=== PATIENT | male | born 1980 | race Caucasian/White ===

== ENCOUNTER 2016-10-03 01:51 | Inpatient (IN) | payer BC, OTHER ==
--- NOTE | 2016-10-03 02:18 | ED ---
Psych HPI - General Chief Complaint: Psychiatric Symptoms Stated Complaint: mental health Time Seen by Provider: 10/03/16 02:01 Source: police Mode of arrival: ambulatory - History of Present Illness Initial Comments: Is a 35-year-old male with a history of depression and suicidal attempts who presents to emergency department for attempted suicide. The patient states that he got into an argument with his about not being able to have sex with her. He states that she got very upset and wrapped a cord around her neck. He took the cord off of her neck and then wrapped around his neck. She was able to get the cord out from around his neck. He then took the founder chairman and chief creative officer was attempting to turn hairdryer on while he was in the bathtub. She stopped this from happening. The police were called and brought him into the emergency department. The patient states that he is very stressed out because he is not been able to have sex with his for a week and this is a major cause of stress in their relationship. He also states that he does not have custody of his daughter and is very upset about that. The patient states that he feels very hopeless. - Related Data Previous Rx's Medication Instructions Recorded Metaxalone [Skelaxin] 800 mg PO TID PRN #15 tab 01/02/14 traMADol HCl [Ultram] 50 mg PO Q6H PRN #20 tab 01/02/14 Allergies Allergy/AdvReac Type Severity Reaction Status Date / Time No Known Allergies Allergy Verified 10/03/16 01:56 Review of Systems ROS Statement: Those systems with pertinent positive or pertinent negative responses have been documented in the HPI. ROS Other: All systems not noted in ROS Statement are negative. Past Medical History Past Medical History: No Reported History History of Any Multi-Drug Resistant Organisms: None Reported Past Surgical History: No Surgical Hx Reported Past Psychological History: Depression Smoking Status: Current every day smoker Past Alcohol Use History: None Reported Past Drug Use History: Marijuana General Exam - General Exam Comments Initial Comments: Constitutional: Awake alert Appears comfortable Head: Normocephalic atraumatic Eyes: no conjunctival injection No scleral icterus EOMI Neck: No JVD Supple, no bruits or indication of strangulation Heart: Regular rate rhythm normal S1-S2 no murmurs Lungs: Clear to auscultation bilaterally No wheezing No rales Abdomen: Soft nondistended nontender Extremities: Non edematous DP pulses intact Radial pulses intact Neuro: A&Ox3 No focal neurologic deficits Psych: The patient appears very depressed with suicidal ideation Limitations: no limitations Course Vital Signs 10/03/16 10/03/16 01:54 04:30 Temperature 98.3 F 97.5 F L Pulse Rate 74 62 Respiratory 18 18 Rate Blood Pressure 138/89 132/78 O2 Sat by Pulse 99 98 Oximetry Medical Decision Making - Medical Decision Making This 35-year-old male came in for suicidal ideation. He was evaluated by mental health and they believe that he needs inpatient treatment. Patient is stable for transfer to the floor. Disposition Clinical Impression: Depression, Suicidal ideation Disposition: ADMITTED IP TO THIS HOSP Condition: Stable
[2016-10-03] MEDS ORDERED: MAG HYDROX/AL HYDROX/SIMETH 30 ML CUP PO PRN (14:34)
[2016-10-03] MEDS ORDERED: MAGNESIUM HYDROXIDE 2,400 MG/10 ML CUP PO PRN (14:34)
[2016-10-03] MEDS ORDERED: ACETAMINOPHEN TAB 325 MG TAB PO PRN (14:34)
--- NOTE | 2016-10-03 15:50 | P.HPMEDMHU ---
History of Present Illness H&P Date: 10/03/16 Chief Complaint: Depression. This is a 35 old male with no primary care physician who was brought into or facility at [facility] emergency department by police because the patient had a conflict at home with his apparently his tried to wrap court around her neck to kill herself so he took the court from her to wrap around his neck and went to the bathroom and started yelling and screaming the kids got scared and the cold 911 police came and took the patient to the ER for evaluation subsequently was admitted to the mental health unit for evaluation of his depression. Patient stated that he tried to give him some 5 years ago but he could not be successful. Review of Systems Constitutional: Denies chills, Denies chronic headaches, Denies lethargy, Denies weakness, Denies weight gain, Denies weight loss Eyes: denies blurred vision, denies bulging eye, denies decreased vision, denies diplopia Ears: deny: decreased hearing Ears, nose, mouth and throat: Denies dysphagia, Denies neck lump, Denies sore throat Cardiovascular: Denies chest pain, Denies claudication, Denies dyspnea on exertion, Denies high blood pressure, Denies phlebitis, Denies rapid heart beat , Denies shortness of breath, Denies syncope Respiratory: Denies congestion, Denies cough, Denies home oxygen, Denies sleep apnea, Denies snoring, Denies wheezing Gastrointestinal: Denies abdominal pain, Denies bloating, Denies BRBPR, Denies change in bowel habits, Denies heartburn, Denies melena, Denies nausea, Denies vomiting Genitourinary: Denies dysuria, Denies nocturia Musculoskeletal: Denies myalgias Musculoskeletal: absent: ankle pain, ankle stiffness, ankle swelling, elbow pain , elbow stiffness, elbow swelling, foot pain, foot stiffness, foot swelling, hand pain, hand stiffness, hand swelling, hip pain, hip stiffness, hip swelling , knee pain, knee stiffness, knee swelling, shoulder pain, shoulder stiffness, shoulder swelling, wrist pain, wrist stiffness, wrist swelling Integumentary: Denies pruritus, Denies rash Neurological: Denies numbness, Denies weakness Psychiatric: Reports anxiety, Reports depression, Reports sleep disturbances, Reports suicidal ideation Endocrine: Denies fatigue, Denies weight change Past Medical History Past Medical History: No Reported History History of Any Multi-Drug Resistant Organisms: None Reported Past Surgical History: No Surgical Hx Reported Additional Past Surgical History / Comment(s): Mcewen teeth removal Past Psychological History: Depression Smoking Status: Current every day smoker (Patient smokes about a pack every day he smoked since he was 10-year-old., Smokes marijuana as well as) Past Alcohol Use History: None Reported Past Drug Use History: Marijuana - Past Family History Mother Family Medical History: COPD, Coronary Artery Disease (CAD) (Mother is 58-year- old has history of CAD and COPD.) Father Family Medical History: No Reported History (Father is 58-year-old he had a work injury after he fell) Brother(s) Family Medical History: No Reported History (Patient has a brother with no major medical problems.) Sister(s) Family Medical History: No Reported History (Patient has one sister no major medical problems.) Daughter(s) Family Medical History: No Reported History (Patient has one daughter no major medical problems) Medications and Allergies Home Medications Medication Instructions Recorded Confirmed Type No Known Home Medications [No 10/03/16 10/03/16 History Known Home Medications] Allergies Allergy/AdvReac Type Severity Reaction Status Date / Time No Known Allergies Allergy Verified 10/03/16 11:36 Physical Exam Vitals: Vital Signs Temp Pulse Pulse Resp BP BP Pulse Ox 10/03/16 05:57 98.3 F 56 L 16 119/80 10/03/16 05:44 97.2 F L 58 L 18 132/74 98 Intake and Output 10/03/16 10/03/16 10/03/16 06:59 14:59 22:59 Other: Weight 63.957 kg - Constitutional General appearance: no acute distress, thin - EENT Eyes: anicteric sclerae, PERRLA, ptosis, no scleral icterus, no normal appearance ENT: hearing grossly normal, NA/AT, normal oropharynx, no thrush Ears: bilateral: normal - Neck Neck: no normal ROM, no rigidity, no stridor, no thyromegaly Carotids: bilateral: upstroke normal Thyroid: bilateral: normal size - Respiratory Respiratory: bilateral: diminished, negative: dullness, rales, rhonchi, wheezing , prolonged expiration - Cardiovascular Rhythm: regular Heart sounds: normal: S1, S2 Abnormal Heart Sounds: no systolic murmur, no S3 Gallop, no S4 Gallop, no click - Gastrointestinal General gastrointestinal: normal bowel sounds, soft, no splenomegaly, no tenderness, no umbilical hernia, no ventral hernia - Integumentary Integumentary: normal, normal turgor - Neurologic Neurologic: CNII-XII intact - Musculoskeletal Musculoskeletal: strength equal bilaterally - Psychiatric Psychiatric: A&O x's 3, no appropriate affect, no intact judgment & insight Cranial Nerve Examination - Cranial Nerves Cranial Nerve I- Olfactory: Intact Cranial Nerve II- Optic: Intact Cranial Nerve III- Oculomotor: Intact Cranial Nerve IV- Trochlear: Intact Cranial Nerve V- Trigeminal: Intact Cranial Nerve - Abducens: Intact Cranial Nerve VII- Facial: Intact Cranial Nerve VIII- Auditory: Intact Cranial Nerve IX- Glossopharyngeal: Intact Cranial Nerve X- Vagus: Intact Cranial Nerve XI- Accessory: Intact Cranial Nerve XII- Hypoglossal: Intact Assessment and Plan Plan: Assessment and plan: 1. Depressive disorder with suicidal ideation. Admit to the mental health unit , patient will be seen by psychiatry, he would be placed on suicidal precautions , group therapy as well as start the patient on SSRI. 2. Chronic tobacco use and dependence. Patient was counseled about smoking cessation and increased risk of CAD, CVA, and malignancy. 3. Chronic marijuana use. Stable at this time. 4. Thank you for the consult we'll follow with you.
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
[2016-10-04 09:36] LABS: Basophils # (A) 0.1 k/uL (0-0.2); Basophils % (A) 1 %; CH 31.2; CHCM 33.1; Eosinophils # (A) 0.4 k/uL (0-0.7); Eosinophils % (A) 3 %; HCT 48.9 % (39.0-53.0); HDW 2.21; HGB 15.7 gm/dL (13.0-17.5); Luc % (Auto) 1; Lymphocytes # (A) 2.2 k/uL (1.0-4.8); Lymphocytes % (A) 17 %; MCH 30.4 pg (25.0-35.0); MCHC 32.1 g/dL (31.0-37.0); MCV 94.8 fL (80.0-100.0); Mean Platelet Volume 9.6; Monocytes # (A) 0.6 k/uL (0-1.0); Monocytes % (A) 5 %; Neutrophils # (A) 9.6 k/uL (1.3-7.7); Neutrophils % (A) 74 %; RBC 5.16 m/uL (4.30-5.90); RDW 12.8 % (11.5-15.5); WBC 12.9 k/uL (3.8-10.6)
[2016-10-04 10:04] LABS: ALT 33 U/L (21-72); AST 23 U/L (17-59); Alkaline Phosphatase 61 U/L (38-126); Anion Gap 12 mmol/L; Blood Urea Nitrogen 14 mg/dL (9-20); Calcium 9.5 mg/dL (8.4-10.2); Carbon Dioxide 28 mmol/L (22-30); Chloride 103 mmol/L (98-107); Glucose 135 mg/dL (74-99); Non-African American GFR(MDRD) >60 (>60 ml/min/1.73 sqM); Potassium 4.2 mmol/L (3.5-5.1); Sodium 143 mmol/L (137-145); Total Bilirubin 1.3 mg/dL (0.2-1.3); Total Protein 7.2 g/dL (6.3-8.2)
[2016-10-04 22:41] LABS: Appearance,Urine Clear (Clear); Bilirubin,Urine Negative (Negative); Glucose,Urine (UA) Negative (Negative); Ketones,Urine Negative (Negative); Leukocyte Esterase,Urine Negative (Negative); Nitrite,Urine Negative (Negative); PH, Urine 5.5 (5.0-8.0); Protein,Urine Negative (Negative); Specific Gravity,Urine 1.015 (1.001-1.035); UA Billing (MACRO vs. MICRO) CHEM; Urobilinogen,Urine <2.0 mg/dL (<2.0)
[2016-10-05 07:05] VITALS: RESP 18
--- NOTE | 2016-10-05 09:09 | PN ---
DATE OF SERVICE: 10/04/2016 CHIEF COMPLAINT: The patient was depressed. He made suicide statements and gestures including wrapping a cord around his neck and threatening to put an electric hairdryer that was plugged into the bathtub where he would be sitting in water. He was in an agitated state in the midst of conflict with his . He was admitted on petition for involuntary hospitalization. INTERVAL HISTORY: Patient has been doing fairly well. He had a fairly long meeting with the social scientist and his mother. He came away from the meeting with the idea that he struggles with narcissism. He was not clear on details. I do not have the notes from Social Work to be able address the issues today. It is noteworthy that the patient does not have much information in regards to a number of situations that are going on presently. His daughter has been having some CPS involvement. There was some indication she was not supposed to return to the home of her guardian, which is the patient's mother. His understanding at present is that the daughter is in fact back home. He himself will be returning home. He said that his mother did not share much information about the current circumstances. He is not aware of where his is at. He continues to say that he does not feel medications would be helpful. He does have some options for therapy. He has been seen in the past but [facility] and says that either there or another counseling agency would likely be able to see him fairly soon as part of discharge planning. The patient has been attending groups, generally is interactive in groups. Sometimes he can be a little intense, though at other times he seems to function adequately within the group setting. He does interact with others on the unit. He gets out in the day area. He slept fairly well last night. He has been out and about today. His mood has been fairly even. He seems to have some anxiety about a lot of uncertainties in his life. He was able to discuss the option of his getting back to work, which apparently he could do by the end of the week which he sees as an important thing for him at this point. He has not had change in his general health. Currently he is not on any psychotropic medications. MENTAL STATUS: Patient gave good eye contact. Psychomotor activity was a little restless. Speech was clear. He rambled at times. His thought process was coherent and goal directed. His affect was somewhat blunted. His mood was quiet. He did not appear to be distressed. ASSESSMENT: I will continue the current diagnosis and treatment plan. At this point, we will focus on setting up followup for the patient, which primarily will be individual and possibly group psychotherapy. I strongly encouraged the patient to try to make contacts with family members to get as much clarification as he can in regards to the family situation. In addition, he might be able to make contact with CPS to get further information in regards to the status of his daughter and so forth. We will aim for discharge in the next day or two depending on progress.
[2016-10-05 12:12] VITALS: BP 138/89; PULSE 74; TEMP 98.3; BMI 19.0
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
--- NOTE | 2016-10-06 11:03 | DS ---
DATE OF ADMISSION: 10/03/2016 DATE OF DISCHARGE: 10/05/2016 ADMISSION AND DISCHARGE DIAGNOSES: 1. Adjustment disorder with mixed emotional features. 2. Rule out major depression. HISTORY OF PRESENTING ILLNESS: The patient was struggling with depression. He had made suicide statements and gestures including wrapping a cord around his neck and threatening electrocution with engineering department chair in a bathtub. He was agitated. He was in the midst of conflict with his . He was admitted on petition for involuntary hospitalization though he signed in voluntarily. He reported one prior psychiatric hospitalization 5 years previous and had been on Celexa for a short time at that point. He said there has been stress over the 1-/2 years though he was vague about particulars. It seemed that the main stress issues related around his relationship with his as well as his relationship with his mother in particular. He has a 14-year-old daughter in the midst of struggles between him and his ex- who now is in [place]. The guardianship for the daughter came to the patient's mother. The daughter is living in the mother's home, as is the patient and the patient's . There were some family conflicts between the daughter and the patient's mother. The daughter apparently had made statements at school prompting a CPS evaluation. The patient and his with the daughter spent a night at a Motel in the area, that evening the patient and his got into a conflict, which led to the suicide gestures that prompted his hospitalization. There are no substance use issues reported. Patient was admitted for further evaluation. Medical history was denied. Further medical history and physical exam as per medical consultation of Dr. Felder. MENTAL STATUS EXAM: Patient was unkempt in appearance. Eye contact fair. Psychomotor activity restless. Speech was clear. He answered questions appropriately. His responses were coherent and goal-directed. He was somewhat vague about references he made. Affect was flat. Mood reserved. He was moderately distressed. Cognitive exam was clear. Refer to admission note for details. DIAGNOSTIC STUDIES: CBC was remarkable for elevated WBC of 12.9, hemoglobin 15.7, hematocrit 95, comprehensive metabolic profile unremarkable save for elevated glucose of 135, creatinine 1.0, TSH 2.3. Urine analysis unremarkable. Urine drug screen positive for marijuana. COURSE OF HOSPITALIZATION: The patient was admitted for comprehensive medical, psychiatric and psychosocial evaluation. We involved the patient in individual and group therapeutic activities. After extensive discussion, the patient requested that medications not be started and that he was hopeful to workout some of the issues that had arisen and to aim towards therapy in followup. During the course of his hospitalization, the patient did fairly well. He attended groups. He at times was a little intense at groups. Sometimes his thoughts could wander. As hospitalization progressed, he became more organized and goal-directed. He had a lot of uncertainties about several issues including CPS involvement. There was a meeting with the patient and a CPS worker on the day of discharge. It was determined that CPS can is continuing to evaluate. There were no issues raised as far as his living in his parent's home and the daughter continuing to reside in the parent's home. The patient and his agreed that the 2 of them would live apart for the moment, while they sorted out some of their personal issues. The was living with an aunt. It is noted that there were some police issues in that there was a PPO order signed by the against the patient. This was done 2 years ago. Presumably there were no further issues, though it never was released from the books. The patient says his is in the process of working with authorities to remove the PPO. Patient felt that he had more structure in his life given that he was able to sort out some of the issues that he had been struggling with of late. He was able to engage in a productive process for discharge planning. CONDITION AT DISCHARGE: Patient was stable. Mood was improved, anxiety was reduced. He had a good outlook. He had clear understanding of some of the immediate issues that were being addressed. He had understanding about the status of CPS. He and his had established a process for communication. RECOMMENDATIONS AND FOLLOWUP: The patient is discharged to home. He will be living with his parents. His daughters is in the house as well. He has a followup appointment with [facility] on October 08 at 7 p.m. He is not on any psychotropic medications. He continues with involvement with CPS.
== END 2016-10-05 16:26 | disposition home or self-care (01) | DRG 882 ==
LOC: EC 01:51 → 3MHU 05:36
PROVIDERS: ADMIT Psychiatry & Neurology Psychiatry; ATTEND Psychiatry & Neurology Psychiatry
DX: F43.23 Adjustment disorder with mixed anxiety and depressed mood (principal); R45.851 Suicidal ideations; F17.200 Nicotine dependence, unspecified, uncomplicated; F90.9 Attention-deficit hyperactivity disorder, unspecified type; F41.9 Anxiety disorder, unspecified; F32.9 Major depressive disorder, single episode, unspecified; Z79.899 Other long term (current) drug therapy; Z63.9 Problem related to primary support group, unspecified
CPT/HCPCS: 80053; 80306; 81003; 82075; 84443; 85025; 99285

== ENCOUNTER 2019-08-08 10:19 | Emergency (ER) | payer BC, OTHER ==
[2019-08-08 10:33] VITALS: BP 110/74; PULSE 75; RESP 18; TEMP 97.6
[2019-08-08] MEDS ORDERED: SODIUM CHLORIDE 0.9% 1,000 ML IV STA (11:06)
[2019-08-08 11:49] LABS: ALT 27 U/L (21-72); AST 23 U/L (17-59); African American GFR (CKD) >90 (>60 ml/min/1.73 sqM); Albumin 4.3 g/dL (3.5-5.0); Alkaline Phosphatase 79 U/L (38-126); Anion Gap 8 mmol/L; Blood Urea Nitrogen 17 mg/dL (9-20); Calcium 9.4 mg/dL (8.4-10.2); Carbon Dioxide 29 mmol/L (22-30); Chloride 106 mmol/L (98-107); Glucose 84 mg/dL (74-99); Non-African American GFR(CKD) >90 (>60 ml/min/1.73 sqM); Potassium 4.1 mmol/L (3.5-5.1); Sodium 143 mmol/L (137-145); Total Bilirubin 0.6 mg/dL (0.2-1.3)
[2019-08-08 11:56] LABS: Basophils # (A) 0.1 k/uL (0-0.2); Basophils % (A) 1 %; Eosinophils # (A) 0.5 k/uL (0-0.7); Eosinophils % (A) 7 %; HCT 48.1 % (39.0-53.0); HGB 16.3 gm/dL (13.0-17.5); Lymphocytes # (A) 1.6 k/uL (1.0-4.8); Lymphocytes % (A) 22 %; MCH 31.8 pg (25.0-35.0); MCV 93.7 fL (80.0-100.0); Mean Platelet Volume 12.2; Monocytes # (A) 0.5 k/uL (0-1.0); Monocytes % (A) 7 %; Neutrophils # (A) 4.4 k/uL (1.3-7.7); Neutrophils % (A) 61 %; RBC 5.14 m/uL (4.30-5.90); RDW 12.2 % (11.5-15.5); WBC 7.2 k/uL (3.8-10.6)
--- NOTE | 2019-08-08 12:01 | XR ---
EXAMINATION TYPE: XR chest 2V DATE OF EXAM: 08/08/2019 COMPARISON: NONE HISTORY: Cough. Multifocal infection. TECHNIQUE: Frontal and lateral views of the chest are obtained. FINDINGS: There is no focal air space opacity, pleural effusion, or pneumothorax seen. The cardiac silhouette size is within normal limits. The osseous structures are intact. Partial visualization o f a nonspecific sclerotic lesion in the left humerus. IMPRESSION: No acute cardiopulmonary process. Partial visualization of the left humeral head nonspec ific sclerotic lesion. Nonemergent follow-up left humeral radiographs are recommended for further willian luation.
--- NOTE | 2019-08-08 12:43 | ED ---
General Adult HPI - General Source: patient, family, RN notes reviewed, old records reviewed Mode of arrival: ambulatory Limitations: no limitations <Neil Talbert - Last Filed: 08/08/19 12:48> <Josefina Jacobson - Last Filed: 08/08/19 23:38> - General Chief complaint: Weakness Stated complaint: MRSA Time Seen by Provider: 08/08/19 10:43 - History of Present Illness Initial comments: 38-year-old male patient, presents to ED for chief complaint of approximately 1 month of rash. Patient reports that him and his girlfriend had the same pruritic, excoriations on the upper and lower extremities. It has been ongoing for 1 month. Patient reports that he went to [facility] emergency department approximately 1 month ago where he was diagnosed with scabies. Patient was prescribed permethrin however he did not use it. Patient then went to his primary care provider. Instead believes it was a superficial skin infection possibly MRSA. Patient reports that he has been on a tetracycline antibiotic for approximately one month now. Patient reports that he is not experiencing some mild generalized weakness and malaise. Reports some waxing and waning fevers chills. Mild cough and congestions. Denies any focal area of pain. Girlfriend has identical rash. Denies any other complaints. Systemic: Pt denies fatigue, fever/chills. Pt denies weakness, night sweats, weight loss. Neuro: Pt denies headache, visual disturbances, syncope or pre-syncope. HEENT: Pt denies ocular discharge or irritation, otalgia, rhinorrhea, pharyngitis or notable lymphadenopathy. Cardiopulmonary: Pt denies chest pain, SOB, heart palpitations, dyspnea on exertion. Abdominal/GI: Pt denies abdominal pain, n/v/d. : Pt denies dysuria, burning w/ urination, frequency/urgency. Denies new onset urinary or bowel incontinence. MSK: Pt denies myalgia, loss of strength or function in extremities. Neuro: Pt denies new onset weakness, paresthesias. (Neil Talbert) - Related Data Home Medications Medication Instructions Recorded Confirmed Aspirin/Acetaminophen/Caffeine 2 tab PO Q12H PRN 08/08/19 08/08/19 [Excedrin Migraine Caplet] Cetirizine HCl [Zyrtec] 10 mg PO DAILY PRN 08/08/19 08/08/19 Minocycline HCl [Minocin] 100 mg PO Q12H 08/08/19 08/08/19 Nystatin 1 applic TOPICAL BID PRN 08/08/19 08/08/19 Previous Rx's Medication Instructions Recorded Permethrin 5% Cream [Elimite] 1 applic TOPICAL ONCE #1 tube 08/08/19 Allergies Allergy/AdvReac Type Severity Reaction Status Date / Time No Known Allergies Allergy Verified 08/08/19 11:32 Review of Systems ROS Other: All systems not noted in ROS Statement are negative. <Neil Talbert - Last Filed: 08/08/19 12:48> ROS Other: All systems not noted in ROS Statement are negative. <Josefina Jacobson - Last Filed: 08/08/19 23:38> ROS Statement: Those systems with pertinent positive or pertinent negative responses have been documented in the HPI. Past Medical History Past Medical History: No Reported History Additional Past Medical History / Comment(s): +MRSA History of Any Multi-Drug Resistant Organisms: MRSA MDRO Source:: hands Past Surgical History: No Surgical Hx Reported Additional Past Surgical History / Comment(s): [place] teeth removal; Surgical repair of severed tendon on R 5th digit; Surgical repair to tip of R 2nd digit Past Anesthesia/Blood Transfusion Reactions: No Reported Reaction Past Psychological History: Depression Smoking Status: Current every day smoker Past Alcohol Use History: None Reported Past Drug Use History: Marijuana - Past Family History Mother Family Medical History: COPD, Coronary Artery Disease (CAD) Father Family Medical History: No Reported History Brother(s) Family Medical History: No Reported History Sister(s) Family Medical History: No Reported History Daughter(s) Family Medical History: No Reported History <Neil Talbert - Last Filed: 08/08/19 12:48> General Exam Limitations: no limitations <Neil Talbert - Last Filed: 08/08/19 12:48> - General Exam Comments Initial Comments: Constitutional: NAD, AOX3, Pt has pleasant affect. HEENT: NC/AT, trachea midline, neck supple, no lymphadenopathy. Posterior pharynx non erythematous, without exudates. External ears appear normal, without discharge. Mucous membranes moist. Eyes PERRLA, EOM intact. There is no scleral icterus. No pallor noted. Cardiopulmonary: RRR, no murmurs, rubs or gallops, no JVD noted. Lungs CTAB in anterior and posterior prajapati. No peripheral edema. Abdominal exam: Abdomen soft and non-distended. Abdomen non-tender to palpation in all 4 quadrants. Bowel sounds active in LLQ. No hepatosplenomegaly. No ecchymosis Neuro: CN II-XII grossly intact. No nuchal rigidity. No raccon eyes, no bush sign, no hemotympanum. No cervical spinal tenderness. MSK: No posterior calf tenderness bilaterally, homans sign negative bilaterally. Posterior tibialis and radial pulse +2 bilaterally. Sensation intact in upper and lower extremities. Full active ROM in upper and lower extremities, 5/5 stregnth. Derm: Skin excoriations in upper or lower extremities anterior torso. Including into webbing between fingers. Spares the soles. (Neil Talbert) Course Vital Signs 08/08/19 10:27 Temperature 97.6 F Pulse Rate 75 Respiratory 18 Rate Blood Pressure 110/74 O2 Sat by Pulse 97 Oximetry Medical Decision Making - Lab Data Result diagrams: 08/08/19 11:25 08/08/19 11:25 <Neil Talbert - Last Filed: 08/08/19 12:48> - Lab Data Result diagrams: 08/08/19 11:25 08/08/19 11:25 <Josefina Jacobson - Last Filed: 08/08/19 23:38> - Medical Decision Making 38-year-old male patient, presents to ED for chief complaint of approximately 1 month of rash. Patient reports that him and his girlfriend had the same pruritic, excoriations on the upper and lower extremities. It has been ongoing for 1 month. Patient reports that he went to [facility] emergency department approximately 1 month ago where he was diagnosed with scabies. Patient was pr escribed permethrin however he did not use it. Patient then went to his primary care provider. Instead believes it was a superficial skin infection possibly MRSA. Patient reports that he has been on a tetracycline antibiotic for approximately one month now. Patient reports that he is not experiencing some mild generalized weakness and malaise. Reports some waxing and waning fevers chills. Mild cough and congestions. Denies any focal area of pain. Girlfriend has identical rash. Denies any other complaints. Pt VSS, afebrile. Physical exam displayed: Skin excoriations in upper or lower extremities anterior torso. Including into webbing between fingers. Spares the soles. Laboratory in vestigations revealed: Noncompressive CBC, CMP. Patient administered 1 L normal saline bolus.Chest x-ray displayed no acute cardiopulmonary process. Partial visualization of the left humeral head nonspecific sclerotic lesion. Nonemergent follow-up repeat films recommended. Clinically this does appear to be scabies. Patient will be discharged. Permethrin. Patient will follow-up with primary care provider and will also follow-up with dermatology if symptoms do not improve. Case discussed with Dr. Jacobson. (Neil Talbert) I was available for consultation in the emergency department. The history and physical exam were done by the midlevel provider. I was consulted for this patients care. I reviewed the case with the midlevel provider and based on their presentation of the patient, I agree with the assessment, medical decision making and plan of care as documented. Chart was dictated using [employer] dictation software. Attempts were made to correct any dictation errors however some typographical errors may persist. (Josefina Jacobson) - Lab Data Lab Results 08/08/19 08/08/19 Range/Units 11:25 11:25 WBC 7.2 (3.8-10.6) k/uL RBC 5.14 (4.30-5.90) m/uL Hgb 16.3 (13.0-17.5) gm/dL Hct 48.1 (39.0-53.0) % MCV 93.7 (80.0-100.0) fL MCH 31.8 (25.0-35.0) pg MCHC 34.0 (31.0-37.0) g/dL RDW 12.2 (11.5-15.5) % Plt Count (150-450) k/uL Neutrophils % 61 % Lymphocytes % 22 % Monocytes % 7 % Eosinophils % 7 % Basophils % 1 % Neutrophils # 4.4 (1.3-7.7) k/uL Lymphocytes # 1.6 (1.0-4.8) k/uL Monocytes # 0.5 (0-1.0) k/uL Eosinophils # 0.5 (0-0.7) k/uL Basophils # 0.1 (0-0.2) k/uL Manual Slide Review Performed RBC Morphology Normal Sodium 143 (137-145) mmol/L Potassium 4.1 (3.5-5.1) mmol/L Chloride 106 (98-107) mmol/L Carbon Dioxide 29 (22-30) mmol/L Anion Gap 8 mmol/L BUN 17 (9-20) mg/dL Creatinine 0.90 (0.66-1.25) mg/dL Est GFR (CKD-EPI)AfAm >90 (>60 ml/min/1.73 sqM) Est GFR (CKD-EPI)NonAf >90 (>60 ml/min/1.73 sqM) Glucose 84 (74-99) mg/dL Calcium 9.4 (8.4-10.2) mg/dL Total Bilirubin 0.6 (0.2-1.3) mg/dL AST 23 (17-59) U/L ALT 27 (21-72) U/L Alkaline Phosphatase 79 (38-126) U/L Total Protein 7.0 (6.3-8.2) g/dL Albumin 4.3 (3.5-5.0) g/dL Disposition Is patient prescribed a controlled substance at d/c from ED?: No <Neil Talbert - Last Filed: 08/08/19 12:48> <Josefina Jacobson - Last Filed: 08/08/19 23:38> Clinical Impression: Rash, Scabies Disposition: HOME SELF-CARE Condition: Stable Instructions (If sedation given, give patient instructions): Scabies (ED) Additional Instructions: Follow-up with primary care provider tomorrow, have repeat x-rays of left humerus taken. Take medication as directed. Follow-up with sharepoint specialist if symptoms do not improve. Follow-up with primary care provider tomorrow. Follow-up with dermatology [place] if symptoms do not improve. Return to ER if condition worsens. For permethrin cream, apply from neck down, leave on for 8-12 hours before washing off, only do one application. If symptoms do not resolve completely may repeat in 14 days. Prescriptions: Permethrin 5% Cream [Elimite] 1 applic TOPICAL ONCE #1 tube Referrals: Dylon Villar MD [Primary Care Provider] - 1-2 days Kori Estrada MD [STAFF PHYSICIAN] - 1-2 days Samy Morin MD [STAFF PHYSICIAN] - 1-2 days
== END 2019-08-08 13:12 | disposition home or self-care (01) ==
LOC: EC 10:19
DX: B86 Scabies (principal); R51 Headache; R09.89 Other specified symptoms and signs involving the circulatory and respiratory systems; F17.200 Nicotine dependence, unspecified, uncomplicated; Z79.899 Other long term (current) drug therapy
CPT/HCPCS: 36415; 71046; 80053; 85025; 96360; 99285